=== PATIENT | female | born 1965 | race Caucasian/White ===

== ENCOUNTER 2018-09-29 12:15 | Emergency (ER) | payer OTHER ==
[~2018-09-29] VITALS: Ht 165.1 cm; Wt 68.0 kg
[~2018-09-29 12:15] MED LIST: CLONAZEPAM1 MG; DIOVAN HCT 320/1 TA2
== END 2018-09-29 15:10 | disposition home or self-care (01) ==
LOC: ER 12:15
DX: S40.021A Contusion of right upper arm, initial encounter (principal); S20.212A Contusion of left front wall of thorax, initial encounter; S20.211A Contusion of right front wall of thorax, initial encounter; M54.2 Cervicalgia; W18.09XA Striking against other object with subsequent fall, initial encounter; Y93.89 Activity, other specified; Y92.89 Other specified places as the place of occurrence of the external cause; Y99.8 Other external cause status

== ENCOUNTER 2021-08-11 13:05 | Emergency (ER) | payer OTHER ==
[~2021-08-11] VITALS: Ht 167.6 cm; Wt 68.5 kg
[2021-08-11] MEDS ORDERED: CRESTOR5 MG PO (13:27)
[2021-08-11] MEDS ORDERED: ULTRAM50 MG PO (13:27)
[2021-08-11] MEDS ORDERED: AVALIDE 300-121 EACH PO (13:27)
[2021-08-11] MEDS ORDERED: MOXIFLOXACIN H400 MG PO (17:50)
[2021-08-11] MEDS ORDERED: LEVALBUTER1.25 MG/3 IH (17:50)
[2021-08-11] MEDS ORDERED: MUCINEX DM ER1 EAC1 PO (17:50)
[2021-08-11] MEDS ORDERED: MEDROLPACK PO (17:50)
[2021-08-11] MEDS ORDERED: XOPENEX HFA15 GM IH (17:50)
== END 2021-08-11 18:06 | disposition home or self-care (01) ==
LOC: ER 13:05
DX: B34.9 Viral infection, unspecified (principal); J40 Bronchitis, not specified as acute or chronic; Z03.818 Encounter for observation for suspected exposure to other biological agents ruled out; R05 Cough